=== PATIENT | male | born 1960 | race Two or more races ===

== ENCOUNTER 2020-08-12 09:22 | Outpatient (CLI) | payer OTHER | END 2020-08-12 09:43 | disposition home or self-care (01) | LOC: NUCLEAR 09:22 | PROVIDERS: ATTEND Internal Medicine Cardiovascular Disease | DX: R07.89 Other chest pain (principal) ==

== ENCOUNTER 2020-08-16 07:20 | Outpatient (CLI) | payer OTHER | END 2020-08-16 07:33 | disposition home or self-care (01) | LOC: NUCLEAR 07:20 | PROVIDERS: ATTEND Internal Medicine Cardiovascular Disease | DX: I11.0 Hypertensive heart disease with heart failure (principal); I20.9 Angina pectoris, unspecified | CPT/HCPCS: 78452; 93017; A9500 ==

== ENCOUNTER 2022-04-03 05:53 | Day surgery (SDC) | payer OTHER ==
[~2022-04-03] VITALS: Ht 165.1 cm; Wt 99.8 kg
[~2022-04-03 05:53] MED LIST: FAMOTIDINE40 MG PO; FLONASE SENSIM5.9 ML; OMEGA-31000 MG PO; OMEPRAZOLE20 M2 PO; SINGULAIR10 MG PO; SPIRIVA RESPIMAT4 G1 IH; TAMS0.4C PO; XOPENEX0.63 MG/3 IH
== END 2022-04-03 16:40 | disposition home or self-care (01) ==
LOC: CIR.AMB 05:53
PROVIDERS: ATTEND Surgery
DX: K43.6 Other and unspecified ventral hernia with obstruction, without gangrene (principal); Z20.822 Contact with and (suspected) exposure to COVID-19; Z91.013 Allergy to seafood; Z88.6 Allergy status to analgesic agent; Z88.0 Allergy status to penicillin; J44.9 Chronic obstructive pulmonary disease, unspecified; Z86.16 Personal history of COVID-19; I87.2 Venous insufficiency (chronic) (peripheral); K21.9 Gastro-esophageal reflux disease without esophagitis; E66.9 Obesity, unspecified; J32.8 Other chronic sinusitis
CPT/HCPCS: 49561; 49568; C1781

== ENCOUNTER 2025-05-17 13:28 | Outpatient (CLI) | payer OTHER | END 2025-05-17 13:31 | disposition home or self-care (01) | LOC: SONOGRAMA 13:28 | PROVIDERS: ATTEND Pathology Anatomic Pathology & Clinical Pathology | DX: R59.0 Localized enlarged lymph nodes (principal); D72.819 Decreased white blood cell count, unspecified ==